=== PATIENT | male | born 1950 | race Caucasian/White ===

== ENCOUNTER → 2017-12-22 | Outpatient (REF) | payer OTHER | LOC: M LAB REF 18:17 | DX: D03.59 Melanoma in situ of other part of trunk (principal) ==

== ENCOUNTER → 2020-02-26 | Outpatient (CLI) | payer MEDICARE, OTHER ==
[2020-03-29 11:22] LABS: COLLAGEN EPINEPHRINE 142 SECONDS (74-162); INR 1.01; PARTIAL THROMBOPLASTIN TIME 31.6 SECONDS (25.0-38.4); PROTHROMBIN TIME 13.5 SECONDS (11.8-14.0)
[2020-03-29 11:39] LABS: PLATELET COUNT, AUTOMATED 268 10^3/uL (150-450)
== END ==
LOC: M LAB 14:30
PROVIDERS: ATTEND Physician Assistant
DX: M47.817 Spondylosis without myelopathy or radiculopathy, lumbosacral region (principal)

== ENCOUNTER → 2020-04-03 | Outpatient (CLI) | payer MEDICARE, OTHER | LOC: M LABSMTC 14:10 | PROVIDERS: ATTEND Physical Medicine & Rehabilitation | DX: Z20.828 Contact with and (suspected) exposure to other viral communicable diseases (principal) ==

== ENCOUNTER → 2021-01-09 | Outpatient (CLI) | payer MEDICARE, OTHER ==
--- NOTE | 2021-01-09 16:43 | REP ---
INDICATION: UNILATERAL PRIMARY OSTEOARTHRITIS. COMPARISON: None. TECHNIQUE: Five views The examination was obtained at 2:14 p.m., however, it is been sent to the read station for interpretation at 4:40 p.m. FINDINGS: There is tricompartmental marginal osteophytosis with medial compartmental narrowing and subchondral sclerosis. There is mild asymmetric patellofemoral joint space narrowing. There is no acute fracture, dislocation, or subluxation. IMPRESSION: Chronic changes as described above. <Electronically signed by Wade Kidd > 01/09/21 [id number]
== END ==
LOC: M SOG 14:10
PROVIDERS: ATTEND Orthopaedic Surgery Sports Medicine
DX: M17.12 Unilateral primary osteoarthritis, left knee (principal)

== ENCOUNTER → 2021-01-16 | Outpatient (CLI) | payer MEDICARE, OTHER ==
--- NOTE | 2021-01-16 10:37 | REP ---
INDICATION: MEDIAL MENISCUS TEAR,OA, POSS LT MENISCUS TEAR. COMPARISON: None. TECHNIQUE: Sagittal spin-echo proton density, T2 STIR and T2 FLASH. Coronal spin-echo proton density and fat suppressed proton density. Axial fat suppressed proton density. FINDINGS: There is rather marked truncation of the posterior horn of the medial meniscus. Grade 1 signal changes are seen in both the anterior and posterior horns of the medial meniscus. Grade 1 and grade 2 signal changes are seen in both anterior and posterior horns of the lateral meniscus. The anterior and posterior cruciate ligaments are intact the quadriceps and patellar tendons are intact. The medial and lateral collateral ligaments are intact. The medial and lateral patellar retinacula are intact. There is rather advanced thinning and irregularity of all articular cartilages particularly affecting the medial compartment where there is mild multifocal subchondral T2 hyper signal. There is tricompartmental marginal osteophytosis. There is a slight joint effusion. There is a 6.4 x 3.1 x 2.2 cm sized Salvador's cyst. Multifocal cysts are seen surrounding the tibiofibular articulation. IMPRESSION: 1. 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 2. Medial and lateral meniscal degenerative changes as described above. 3. 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 There is also MRI evidence of medial compartmental narrowing and subchondral edema likely secondary to repeated micro trauma. 4. Joint effusion as described above. 5. Salvador's cyst as described above. 6. Other findings as described above <Electronically signed by Wade Kidd > 01/16/21 [id number]
== END ==
LOC: M PLAIMG 09:30
PROVIDERS: ATTEND Orthopaedic Surgery Sports Medicine
DX: S83.242A Other tear of medial meniscus, current injury, left knee, initial encounter (principal); M94.262 Chondromalacia, left knee; M25.462 Effusion, left knee; M71.22 Synovial cyst of popliteal space [Baker], left knee; X58.XXXA Exposure to other specified factors, initial encounter; Y92.9 Unspecified place or not applicable

== ENCOUNTER → 2022-04-01 | Outpatient (CLI) | payer MEDICARE, OTHER | LOC: M PLAIMG 14:07 | PROVIDERS: ATTEND Physician Assistant | DX: M48.061 Spinal stenosis, lumbar region without neurogenic claudication (principal); M43.16 Spondylolisthesis, lumbar region ==

== ENCOUNTER → 2022-04-09 | Outpatient (CLI) | payer MEDICARE, OTHER ==
[~2022-04-09] MED LIST: PROHANCE 279.3MG/ML 5ML VIAL ONE
== END ==
LOC: M PLAIMG 13:52
PROVIDERS: ATTEND Podiatrist Foot & Ankle Surgery
DX: D21.22 Benign neoplasm of connective and other soft tissue of left lower limb, including hip (principal)
CPT/HCPCS: 73720; A9576

== ENCOUNTER → 2022-06-17 | Outpatient (REF) | payer MEDICARE, OTHER | LOC: M LAB REF 13:00 | PROVIDERS: ATTEND Podiatrist Foot & Ankle Surgery | DX: M85.672 Other cyst of bone, left ankle and foot (principal) ==